=== PATIENT | male | born 1960 | race Caucasian/White ===

== ENCOUNTER → 2023-03-03 | Outpatient (CLI) | payer OTHER, SELFPAY ==
--- NOTE | 2023-03-03 10:02 | NM_ITS ---
CLINICAL: 63-year-old male with history of clinical gastroparesis. SEMI-SOLID PHASE 99m Tc SULFUR COLLOID GASTRIC EMPTYING STUDY COMPARISON: None available FINDINGS: The patient was administered 1.0 mCi of 99m Tc sulfur colloid mixed with oatmeal and consumed per os. Image acquisitions in the anterior-posterior projections were obtained for 60 minutes. There is prompt visualization of the stomach. There is no gastroesophageal reflux identified. The T ? raw data emptying was calculated to be 2.38 minutes, (Normal: 12-56 minutes). NM/Gastric Emptying Study IMPRESSION: 1. NORMAL 99m Tc sulfur colloid semi-solid phase (oatmeal) gastric emptying imaging examination. A. There is upper limits of normal and preserved semi-solid phase gastric emptying compared to normal controls. (Bharath et al, J Nucl Med Tech 38: 186, 2010). Electronically Signed: Shahid Pan, at 23:32 EDT ,
== END | disposition home or self-care (01) ==
LOC: NM 10:00
PROVIDERS: Referring Provider Internal Medicine Gastroenterology; Visit Provider Internal Medicine Gastroenterology
DX: K59.00 Constipation, unspecified (principal); R10.9 Unspecified abdominal pain
CPT/HCPCS: 78264; A9541

== ENCOUNTER → 2023-03-31 | Outpatient (CLI) | payer OTHER, SELFPAY ==
--- NOTE | 2023-03-31 17:34 | CT_ITS ---
EXAM: CT ANGIOGRAPHY ABDOMEN AND PELVIS WITHOUT AND WITH INTRAVENOUS CONTRAST CLINICAL INDICATION: LOOKING FOR ISCHEMIC BOWEL TECHNIQUE: Helically acquired angiography images were obtained of the abdomen and pelvis without and with intravenous contrast. This CT exam was performed using one or more of the following dose reduction techniques: automated exposure control, adjustment of the mA and/or kV according to patient size, and/or use of iterative reconstruction technique. MIP reconstructed images were created and reviewed. CONTRAST: IV 100mL Isovue-370 RADIATION DOSE: Total DLP: 1198.66 mGy-cm. COMPARISON: None. FINDINGS: VASCULATURE: AORTA: The abdominal aorta is minimally calcific and is normal in caliber. No aneurysm or intimal flap. CELIAC TRUNK AND MESENTERIC ARTERIES: The ANU enhances normally. Celiac axis and SMA are widely patent. No occlusion or significant stenosis. RENAL ARTERIES: There are 2 right renal arteries and a single left renal artery. No renal artery stenosis is visualized. ILIAC ARTERIES: Minimal nonstenotic calcified plaque noted within the distal right common iliac artery. The common iliac, external iliac, common femoral and visualized superficial femoral arteries show no hemodynamically significant stenosis. LOWER THORAX: Visualized lung bases are clear except for incidental dependent atelectasis. No pleural effusion. No coronary artery calcification is visualized. No significant pericardial effusion. ABDOMEN: LIVER: Unremarkable. Homogeneous. No focal mass. GALLBLADDER AND BILE DUCTS: Unremarkable. No calcified gallstones. No gallbladder distention or wall edema. No intra- or extrahepatic biliary ductal dilation. PANCREAS: Unremarkable. No focal cystic or solid mass. SPLEEN: Unremarkable. Normal size without focal cystic or solid mass. ADRENALS: Unremarkable. No nodules. KIDNEYS AND URETERS: Normal size kidneys with symmetric nephrograms. Minimal nonspecific perirenal stranding. Small simple right renal cysts which require no follow-up. No hydronephrosis or obstructing ureteral stone. STOMACH AND BOWEL: No gastric mural thickening, periduodenal inflammatory changes or distended small bowel loops. No bowel wall thickening, pneumatosis or mesenteric venous gas. No nonenhancing bowel wall is seen. The ascending colon is decompressed, causing artifactual mural thickening. PELVIS: APPENDIX: Normal. No evidence of acute appendicitis. BLADDER: Unremarkable. REPRODUCTIVE: Unremarkable as visualized. No mass. ABDOMEN and PELVIS: INTRAPERITONEAL SPACE: Unremarkable. No ascites or other fluid collection. No free air. BONES/JOINTS: Flowing osteophytes about the lower thoracic disc spaces. Degenerative spurring about the L2/3 disc space. No acute osseous abnormality. SOFT TISSUES: Small fat-filled bilateral inguinal hernias, larger on the left. LYMPH NODES: Small nonspecific lymph nodes with surrounding haziness noted within the small bowel mesentery, nonspecific. CT/CTA Abd/Pelvis W/WO Contrast IMPRESSION: 1. The major intra-abdominal vessels show no hemodynamically significant stenosis or occlusion. 2. No findings of ischemic bowel identified. 3. Normal appendix. 4. Small nonspecific mesenteric lymph nodes with surrounding otoniel mesentery, which can be due to a variety of etiologies including an adenitis or mesenteric panniculitis, which can be associated chronic abdominal pain. Electronically Signed: Heladio Manzano MD at 5:13 EDT ,
[2023-03-31 18:03] LABS: EGFR FINGERSTICK > 60.0000 mL/min (>60)
== END | disposition home or self-care (01) ==
PROVIDERS: Referring Provider Internal Medicine Gastroenterology; Visit Provider Internal Medicine Gastroenterology
DX: K59.00 Constipation, unspecified (principal); R10.9 Unspecified abdominal pain
CPT/HCPCS: 74174; Q9967

== ENCOUNTER 2023-04-12 15:49 | Outpatient (CLI) | payer OTHER, SELFPAY ==
[2023-04-12] VITALS (8 sets, daily range): BP systolic 106–138; BP diastolic 68–82; PULSE 62–80; RESP 16–20; TEMP 36.1–36.7; O2SAT 92–98; BMI 33.5
--- NOTE | 2023-04-12 13:22 | PCM.HP.BLA ---
History and Physical Date of Admission: 04/12/23 YODIT JACKMAN, is a 62 M who presents to the office today for [facility] 11.13.22 with abdominal distention, N/V. Workup noted dehydration without acute/chronic findings. Improved with Zofran; hold Trulicity. Discharged home. ? CT abd/pel dilated stomach with fluid, air, debris with focal thickening of antrum likely r/t peristalsis; fluid in colon. Endocrinology [facility] established 2017 for DMII, Hashimotos thyroidistis and hypogonadism. Continue metformin, Jardiance and Trulicity; continue androgel. *[facility] established 5.10.23 with several days of softer stools with difficulty initiating and straining followed by several days of loose stools 3-5/day with increased flatulence. Symptoms have been a lifelong issue that the constipation aspect is getting worse. N/V has resolved since [facility] visit. He is not currently taking regular bowel medications; laxative is used PRN 1-2 times a week. Reports colonoscopy many years prior with polypectomy and recalls [place] reports. ROS Const Constitutional: No anorexia, fatigue, fever(s), weight change or sleep problems Eyes Eyes: No change in vision ENT ENT: No abnormal hearing, difficulty swallowing, mouth lesions, tongue swelling or throat swelling Resp Respiratory: No cough or shortness of breath Cardio Cardiology: No chest pain at rest, chest pain with exertion, shortness of breath or dyspnea on exertion Gastro GI: No difficulty swallowing Genitourinary Male: No difficulty urinating or burning urination Musc Musculoskeletal: No joint pain, joint swelling, muscle weakness or decreased muscle mass Skin Skin: No hair loss in leg, yellowing of the eye, itchy eyes, rash, skin ulcer or skin swelling Neuro Neurology: No abnormal hearing, abnormal movements, confusion, unsteady gait/balance or memory loss Psych Psychiatric: No anxiety, No confusion and No memory loss Endo Endocrine: No fatigue or weight change Aller/Imm Allergy/Immunologic: No itchy eyes, throat swelling or tongue swelling Chad/Lymp Hematologic/Lymphatic: No easy bleeding, easy bruising or enlarged lymph nodes Assessment and Plan Assessment and Plan (1) Constipation: Status: Chronic Plan: It seems like he does have chronic idiopathic constipation or slow transit constipation which can be a result of the type 2 diabetes. He has a history of diverticular disease. We will perform colonoscopy in order to evaluate his lower GI tract. He also may need evaluation of his pelvic floor in the setting of chronic diabetes to make sure that he does not have any signs of outlet neuropathy secondary to diabetes that is causing obstipation like symptoms. We will also evaluate him for sigmoid colitis associated with diverticulosis due to his abdominal pain caused him to go to the hospital for evaluation. (2) Abdominal pain: Status: Acute Plan: He is also at risk for gastroparesis due to longstanding history of diabetes. He suffers from Raynaud's phenomenon and also neuropathy associated with diabetes. He does not have any history of protein in his urine or any diabetic retinopathy as per the patient and his . We will perform a gastric emptying study to see if he has any signs of delayed gastric emptying secondary to diabetes mellitus. We will also get a CT angiography due to his history of ischemic stroke and intermittent abdominal pain. When he undergoes a colonoscopy he will also undergo an upper endoscopy to look for any signs of peptic ulcer disease, H. pylori associated gastritis, hiatal hernia or any other dyspeptic findings in his upper GI tract. Orders: Orders Comprehensive Metabolic Profil Today K59.00 - Constipation, unspecified, R10.9 - Unspecified abdominal pain CRP Today K59.00 - Constipation, unspecified, R10.9 - Unspecified abdominal pain LDH Today K59.00 - Constipation, unspecified, R10.9 - Unspecified abdominal pain Erythrocyte Sed Rate Today K59.00 - Constipation, unspecified, R10.9 - Unspecified abdominal pain Gastric Emptying Study Today K59.00 - Constipation, unspecified, R10.9 - Unspecified abdominal pain ANCA Today K59.00 - Constipation, unspecified, R10.9 - Unspecified abdominal pain Celiac Disease Profile Today K59.00 - Constipation, unspecified, R10.9 - Unspecified abdominal pain Immunoglobulin A Today K59.00 - Constipation, unspecified, R10.9 - Unspecified abdominal pain Immunoglobulin E Today K59.00 - Constipation, unspecified, R10.9 - Unspecified abdominal pain Immunoglobulin G Today K59.00 - Constipation, unspecified, R10.9 - Unspecified abdominal pain Immunoglobulin M Today K59.00 - Constipation, unspecified, R10.9 - Unspecified abdominal pain CTA Abd/Pelvis W/WO Contrast Today K59.00 - Constipation, unspecified, R10.9 - Unspecified abdominal pain Allergen, Rast Food Profile Today K59.00 - Constipation, unspecified, R10.9 - Unspecified abdominal pain Allergen, Food Profile Today K59.00 - Constipation, unspecified, R10.9 - Unspecified abdominal pain BARRIE Comprehensive Panel Today K59.00 - Constipation, unspecified, R10.9 - Unspecified abdominal pain I have examined the patient and the H&P has been reviewed. There are no clinical changes since date of exam.
[2023-04-12] MEDS: Lactated Ringers 1,000 ML 15 ML IV (13:24)
--- NOTE | 2023-04-12 13:45 | IMM_PTH ---
PATIENT: YODIT JACKMAN LOC: EN U#:[id number] AGE/SX: 63/M ROOM: RE04/12/[address]: Dr. Ramiro Palomino DO : 1960 BED: DIS: 04/12/2023 SPEC #: [id number] RECD: 04/13/23 12:49 STATUS: SD JAZMINE #: [id number] GARCIA: 04/12/23 13:[address]: Ramiro Palomino DEPT: IMMUNOHISTOCHEMISTRY RECD BY: Carmencita Woo Tissues: B - Stomach, NOS Procedures: H Pylori (initial) PHYSICIAN & INSTITUTION [place] [id number] SPECIMEN INFORMATION: Tissue Source: B - Gastric ulcer Clinical Info: Constipation, abdominal pain Specimen Number: [id number] CPT code: 39060 METHODOLOGY: Deparaffinized sections of prefer/formalin-fixed tissue or PAP/DQ stained slides are incubated with monoclonal/polyclonal antibodies/oligonucleotide probes. Localization is made via biotin free immunoperoxidase method. Appropriate controls are performed and reacted as expected. Results on target cell population are indicated in the following table: RESULTS: ANTIBODY / CLONE RESULT Block B H Pylori (polyclonal) negative These tests were developed and their performance characteristics determined by [facility]. They may not have been cleared or approved by the U.S. Food and Drug Administration. The FDA has determined that such clearance or approval is not necessary. The above immunohistochemical/dualISH markers are ordered and reviewed by the Pathologist. INTERPRETATION: B. Gastric ulcer, biopsy: Negative for Helicobacter pylori organisms. AM:essie 04/14/2023
--- NOTE | 2023-04-12 13:45 | EGD_PTH ---
PATIENT: YODIT JACKMAN LOC: EN U#:[id number] AGE/SX: 63/M ROOM: RE04/12/[address]: Dr. Ramiro Palomino DO : 1960 BED: DIS: 04/12/2023 SPEC #: [id number] RECD: 04/13/23 08:41 STATUS: SD JAZMINE #: [id number] GARCIA: 04/12/23 13:[address]: Ramiro Palomino DEPT: SURGICAL PATHOLOGY RECD BY: Rosi Germain Tissues: A - Duodenum, NOS B - Gastric mucous membrane C - Ascending colon D - Cecum, NOS E - Cecum, NOS F - COLON BIOPSY Procedures: Surgery Specimen Level IV HEADER OPERATION: Colonoscopy with biopsies, EGD ([facility] [place]) with biopsies PRE-OP DIAGNOSIS: Constipation, abdominal pain TISSUE SUBMITTED: A - Duodenum biopsy, B - Gastric ulcer biopsy, C - Ascending colon polyp biopsy, D - Cecum polyp biopsy, E - Cecum biopsy, F - Random colon biopsy MICROSCOPIC DIAGNOSIS A. Duodenum, biopsy: Mild mucosal congestion. B. Gastric ulcer, biopsy: Ulceration with associated acute and chronic inflammation and granulation. See comment. C. Ascending colon polyp, biopsy: Tubular adenoma. D. Cecal polyp, biopsy: Fragments of tubular adenoma. E. Cecal polyp, biopsy: Polypoid fragments of benign colonic mucosa. See comment. F. Colon, random biopsy: No pathologic change. AM:essie 04/14/2023 COMMENT B. The results of immunohistochemistry for Helicobacter pylori will be reported separately ([id number]). E. Neither hyperplastic nor adenomatous change is seen. Clinical correlation is suggested. MICROSCOPIC DESCRIPTION Slides are reviewed. GROSS DESCRIPTION A - Received in fixative is one container labeled with the patient's name and designated duodenum biopsy. The specimen consists of multiple irregular fragments of light stewart soft tissue that in aggregate measure 0.8 x 0.3 x 0.1 cm. The specimen is totally submitted in one cassette. B - Received in fixative is one container labeled with the patient's name and designated gastric ulcer biopsy. The specimen consists of multiple irregular fragments of light stewart soft tissue that in aggregate measure 0.8 x 0.2 x 0.1 cm. The specimen is totally submitted in one cassette. C - Received in fixative is one container labeled with the patient's name and designated ascending colon polyp biopsy. The specimen consists of one irregular fragment of light stewart soft tissue that measures 0.3 x 0.3 x 0.1 cm. The specimen is totally submitted in one cassette. D - Received in fixative is one container labeled with the patient's name and designated cecum polyp biopsy. The specimen consists of two irregular fragments of light stewart soft tissue that in aggregate measure 0.8 x 0.4 x 0.1 cm. The specimen is totally submitted in one cassette. E - Received in fixative is one container labeled with the patient's name and designated cecum biopsy. The specimen consists of multiple irregular fragments of light stewart soft tissue that in aggregate measure 1.0 x 0.5 x 0.1 cm. The specimen is totally submitted in one cassette. F - Received in fixative is one container labeled with the patient's name and designated random colon biopsy. The specimen consists of multiple irregular fragments of light stewart soft tissue that in aggregate measure 0.8 x 0.6 x 0.1 cm. The specimen is totally submitted in one cassette. / SJ:rg 04/13/2023 TC:2 CPT: 62230 x6
[2023-04-12 14:32] LABS: Bedside Glucose 108 mg/dL (74-106)
--- NOTE | 2023-04-12 14:48 | OP.COLON_ITS ---
Patient Name: Dallas Simon Procedure Date: 04/12/2023 2:25 PM Date of : 1960 Age: 63 Procedure: Colonoscopy Indications: Chronic diarrhea Providers: Ramiro Palomino DO Referring MD: Ramiro Palomino DO Medicines: Monitored Anesthesia Care Patient Profile: This is a 63 year old male. Refer to note in patient chart for documentation of history and physical. Last Colonoscopy: date unknown. Unable to locate last colonoscopy report. Complications: No immediate complications. Procedure: Pre-Anesthesia Assessment: - Prior to the procedure, a History and Physical was performed, and patient medications and allergies were reviewed. The patient is competent. The risks and benefits of the procedure and the sedation options and risks were discussed with the patient. All questions were answered and informed consent was obtained. Patient identification and proposed procedure were verified by the physician in the pre-procedure area. Mental Status Examination: alert and oriented. Airway Examination: normal oropharyngeal airway and neck mobility. Respiratory Examination: clear to auscultation. CV Examination: normal. Prophylactic Antibiotics: The patient does not require prophylactic antibiotics. Prior Anticoagulants: The patient has taken no previous anticoagulant or antiplatelet agents. After reviewing the risks and benefits, the patient was deemed in satisfactory condition to undergo the procedure. The anesthesia plan was to use monitored anesthesia care (MAC). Immediately prior to administration of medications, the patient was re-assessed for adequacy to receive sedatives. The heart rate, respiratory rate, oxygen saturations, blood pressure, adequacy of pulmonary ventilation, and response to care were monitored throughout the procedure. The physical status of the patient was re-assessed after the procedure. After I obtained informed consent, the scope was passed under direct vision. Throughout the procedure, the patient's blood pressure, pulse, and oxygen saturations were monitored continuously. The was introduced through the anus and advanced to the cecum, identified by appendiceal orifice and ileocecal valve. The colonoscopy was performed without difficulty. The patient tolerated the procedure well. The quality of the bowel preparation was good. Scope In: 2:26:57 PM Scope Withdrawal Time 0 hours 11 minutes 42 seconds Scope Out: 2:42:19 PM Total Procedure Duration Time 0 hours 15 minutes 22 seconds Findings: The perianal and digital rectal examinations were normal. Two sessile polyps were found in the ascending colon and cecum. The polyps were 1 to 2 mm in size. These polyps were removed with a cold snare. Resection and retrieval were complete. Verification of patient identification for the specimen was done. Estimated blood loss was minimal. An area of mildly congested mucosa was found in the rectum, in the recto-sigmoid colon, in the transverse colon, at the hepatic flexure and in the ascending colon. Biopsies were taken with a cold forceps for histology. Verification of patient identification for the specimen was done. Estimated blood loss was minimal. There was a large lipoma, at the hepatic flexure. Impression: - Two 1 to 2 mm polyps in the ascending colon and in the cecum, removed with a cold snare. Resected and retrieved. - Congested mucosa in the rectum, in the recto-sigmoid colon, in the transverse colon, at the hepatic flexure and in the ascending colon. Biopsied. - Large lipoma at the hepatic flexure. Recommendation: - Discharge patient to home. - Resume previous diet. - Continue present medications. - Await pathology results. - Repeat colonoscopy in 5 years for surveillance. Procedure Code(s): --- Professional --- 37372, Colonoscopy, flexible; with removal of tumor(s), polyp(s), or other lesion(s) by snare technique 20373, 59, Colonoscopy, flexible; with biopsy, single or multiple CPT copyright 2017 [employer]. All rights reserved. The codes documented in this report are preliminary and upon headliner installer review may be revised to meet current compliance requirements. Ramiro Palomino DO 04/12/2023 2:47:30 PM This report has been signed electronically. Number of Addenda: 0 Note Initiated On: 04/12/2023 2:25 PM
--- NOTE | 2023-04-12 14:48 | OP.CCLET_ITS ---
04/12/2023 Linus Re : Colonoscopy procedure for Dallas Simon Dear Linus This procedure was performed on Wednesday, April 12, 2023. My impressions and recommendations are as follows: Impressions : - Two 1 to 2 mm polyps in the ascending colon and in the cecum, removed with a cold snare. Resected and retrieved. - Congested mucosa in the rectum, in the recto-sigmoid colon, in the transverse colon, at the hepatic flexure and in the ascending colon. Biopsied. - Large lipoma at the hepatic flexure. Recommendations : - Discharge patient to home. - Resume previous diet. - Continue present medications. - Await pathology results. - Repeat colonoscopy in 5 years for surveillance. My findings are described in the full procedure note, which is enclosed. If I can be of further assistance, please feel free to contact me at . Sincerely, Ramiro Palomino, 04/12/2023 2:47:30 PM This report has been signed electronically.
--- NOTE | 2023-04-12 14:51 | OP.EGD_ITS ---
Patient Name: Dallas Simon Procedure Date: 04/12/2023 2:06 PM Date of : 1960 Age: 63 Procedure: Upper GI endoscopy Indications: Epigastric abdominal pain Providers: Ramiro Palomino DO Referring MD: Ramiro Palomino DO Medicines: Monitored Anesthesia Care Patient Profile: This is a 63 year old male. Refer to note in patient chart for documentation of history and physical. Patient has symptoms. Complications: No immediate complications. Procedure: Pre-Anesthesia Assessment: - Prior to the procedure, a History and Physical was performed, and patient medications and allergies were reviewed. The patient is competent. The risks and benefits of the procedure and the sedation options and risks were discussed with the patient. All questions were answered and informed consent was obtained. Patient identification and proposed procedure were verified by the physician in the pre-procedure area. Mental Status Examination: alert and oriented. Airway Examination: normal oropharyngeal airway and neck mobility. CV Examination: normal. Prophylactic Antibiotics: The patient does not require prophylactic antibiotics. Prior Anticoagulants: The patient has taken no previous anticoagulant or antiplatelet agents. After reviewing the risks and benefits, the patient was deemed in satisfactory condition to undergo the procedure. The anesthesia plan was to use minimal sedation / analgesia (anxiolysis). Immediately prior to administration of medications, the patient was re-assessed for adequacy to receive sedatives. The heart rate, respiratory rate, oxygen saturations, blood pressure, adequacy of pulmonary ventilation, and response to care were monitored throughout the procedure. The physical status of the patient was re-assessed after the procedure. After obtaining informed consent, the endoscope was passed under direct vision. Throughout the procedure, the patient's blood pressure, pulse, and oxygen saturations were monitored continuously. The was introduced through the mouth, and advanced to the second part of duodenum. The upper GI endoscopy was accomplished without difficulty. The patient tolerated the procedure well. Scope In: 2:19:59 PM Scope Out: 2:24:40 PM Total Procedure Duration Time 0 hours 4 minutes 41 seconds Findings: LA Grade A (one or more mucosal breaks less than 5 mm, not extending between tops of 2 mucosal folds) esophagitis with no bleeding was found 36 to 38 cm from the incisors. Many oozing cratered gastric ulcers with pigmented material were found in the stomach. The largest lesion was 5 mm in largest dimension. Area was successfully injected with 5 mL of a 1:10,000 solution of epinephrine for hemostasis. Estimated blood loss was minimal. Three non-bleeding cratered gastric ulcers with no stigmata of bleeding were found in the gastric body. The largest lesion was 6 mm in largest dimension. Biopsies were taken with a cold forceps for histology. Verification of patient identification for the specimen was done. Estimated blood loss was minimal. Many non-bleeding linear duodenal ulcers with no stigmata of bleeding were found in the duodenal bulb. The largest lesion was 6 mm in largest dimension. Biopsies were taken with a cold forceps for histology. Verification of patient identification for the specimen was done. Estimated blood loss was minimal. Impression: - LA Grade A esophagitis. - Oozing gastric ulcers with pigmented material. Injected. - Non-bleeding gastric ulcers with no stigmata of bleeding. Biopsied. - Multiple non-bleeding duodenal ulcers with no stigmata of bleeding. Biopsied. Recommendation: - Discharge patient to home. - Resume previous diet. - Continue present medications. - Await pathology results. - Use Protonix (pantoprazole) 40 mg PO BID. - Use sucralfate tablets 1 gram PO QID. Procedure Code(s): --- Professional --- 84506, 59, Esophagogastroduodenoscopy, flexible, transoral; with control of bleeding, any method 82069, Esophagogastroduodenoscopy, flexible, transoral; with biopsy, single or multiple CPT copyright 2017 [employer]. All rights reserved. The codes documented in this report are preliminary and upon industrial nurse review may be revised to meet current compliance requirements. Ramiro Palomino DO 04/12/2023 2:51:25 PM This report has been signed electronically. Number of Addenda: 0 Note Initiated On: 04/12/2023 2:06 PM
--- NOTE | 2023-04-12 14:51 | OP.CCLET_ITS ---
04/12/2023 Lady Barriga Re : Upper GI endoscopy procedure for [place] Bowerr Linus This procedure was performed on Wednesday, April 12, 2023. My impressions and recommendations are as follows: Impressions : - LA Grade A esophagitis. - Oozing gastric ulcers with pigmented material. Injected. - Non-bleeding gastric ulcers with no stigmata of bleeding. Biopsied. - Multiple non-bleeding duodenal ulcers with no stigmata of bleeding. Biopsied. Recommendations : - Discharge patient to home. - Resume previous diet. - Continue present medications. - Await pathology results. - Use Protonix (pantoprazole) 40 mg PO BID. - Use sucralfate tablets 1 gram PO QID. My findings are described in the full procedure note, which is enclosed. If I can be of further assistance, please feel free to contact me at . Sincerely, Ramiro Palomino, 04/12/2023 2:51:25 PM This report has been signed electronically.
--- NOTE | 2023-04-12 15:08 | SUR.PHASEI ---
ANESTHESIA NOTIFIED PT [id number] PERCENT ON ROOM AIR. PT DENIES SHORTNESS OF BREATH. PT ALERT. LUNGS CLEAR. PT DRINKING COFFEE. OK TO TRANSFER PT TO STAGE 2
[2023-04-12 16:30] LABS: Erythrocyte Sedimentation Rate 2 mm/hr (0-20)
[2023-04-12 16:45] LABS: ALB/GLOB Ratio 1.3 RATIO (0.9-2.4); AST(SGOT) 32 U/L (15-37); Alanine Aminotransfer ALT/SGPT 51 U/L (16-61); Albumin, Serum 3.8 g/dL (3.2-5.0); Alkaline Phosphatase 95 U/L (45-117); Anion Gap 3 (5-15); BUN 10 mg/dL (7-18); BUN/Creat Ratio 9.9 RATIO (10-20); CRP < 2.90 mg/L (0.0-3.0); Calcium,Total 8.8 mg/dL (8.5-10.1); Chloride 103 mmol/L (98-107); Creatinine, Serum 1.01 mg/dL (0.70-1.30); EST Glomerular Filtration Rate 79 mL/min (>60); Est Glom Filt Rate - Afr Amer 96 mL/min (>60); Estimated Creatinine Clearance 72.43 ml/min; Glucose 164 mg/dL (74-106); LDH 105 U/L (87-241); Potassium 3.9 mmol/L (3.5-5.1); Protein, Total 6.8 g/dL (6.4-8.2); Sodium Level 136 mmol/L (136-145)
[2023-04-16 00:06] LABS: Anti-Centromere B Ab <0.2 AI (0.0-0.9); Anti-Chromatin <0.2 AI (0.0-0.9); Anti-Jo <0.2 AI (0.0-0.9); Anti-Scleroderma-70 AB <0.2 AI (0.0-0.9); Anti-dsDNA Ab <1 IU/mL (0-9); Beef <0.10 kU/L (Class 0); Chocolate <0.10 kU/L (Class 0); Clam <0.10 kU/L (Class 0); Codfish <0.10 kU/L (Class 0); Corn <0.10 kU/L (Class 0); Egg, White <0.10 kU/L (Class 0); Egg, Whole <0.10 kU/L (Class 0); Milk (Cow) <0.10 kU/L (Class 0); Peanut <0.10 kU/L (Class 0); Pork <0.10 kU/L (Class 0); RNP Ab <0.2 AI (0.0-0.9); SCALLOP <0.10 kU/L (Class 0); SESAME SEED <0.10 kU/L (Class 0); SJOGREN'S Anti-SS-A test < 0.2 AI (0.0-0.9); SJOGREN'S Anti-SS-B test < 0.2 AI (0.0-0.9); Shrimp <0.10 kU/L (Class 0); Smith Ab <0.2 AI (0.0-0.9); Soybean <0.10 kU/L (Class 0); Walnut, (Food) <0.10 kU/L (Class 0); Wheat <0.10 kU/L (Class 0)
[2023-04-16 07:08] LABS: Cytoplasmic Ab (C-ANCA) <1:20 titer (Neg:<1:20); Endomysial Antibody IgA Negative (Negative); Immunoglobulin A 125 mg/dL (61-437); Immunoglobulin E 141 IU/mL (6-495); Immunoglobulin G 831 mg/dL (603-1613); Immunoglobulin M 40 mg/dL (20-172); Perinuclear Ab (P-ANCA) <1:20 titer (Neg:<1:20); t-Transglutaminase IgA <2 U/mL (0-3)
== END 2023-04-12 15:55 | disposition home or self-care (01) ==
LOC: EN 15:51
PROVIDERS: Referring Provider Internal Medicine Gastroenterology; Visit Provider Internal Medicine Gastroenterology
PROC: 0DJD8ZZ Inspection of Lower Intestinal Tract, Via Natural or Artificial Opening Endoscopic (ICD-10-PCS; CPT 45378; principal; 2023-04-12 13:40)
DX: K59.00 Constipation, unspecified (principal); E11.9 Type 2 diabetes mellitus without complications; R10.9 Unspecified abdominal pain; K25.9 Gastric ulcer, unspecified as acute or chronic, without hemorrhage or perforation; K20.90 Esophagitis, unspecified without bleeding; Z86.73 Personal history of transient ischemic attack (TIA), and cerebral infarction without residual deficits; Z99.89 Dependence on other enabling machines and devices; G25.81 Restless legs syndrome; E07.9 Disorder of thyroid, unspecified; Z79.899 Other long term (current) drug therapy
CPT/HCPCS: 43239; 45385; 45380; 43255; 36415; 80053; 82784; 82785; 82962; 83516; 83615; 85652; 86003; 86005; 86140; 86225; 86235; 86255; 86256; 88305; 88342; J7120; J2405

== ENCOUNTER → 2024-11-30 | Outpatient (CLI) | payer OTHER, SELFPAY ==
[2024-11-30 10:58] LABS: Hematocrit 50.6 % (40-54); Mean Corp Hgb Conc 33.6 g/dL (32-36); Mean Corpuscular Volume 89.2 fL (80-94); Mean Platelet Vol. 12.8 fl (6.2-12.0); POSITIVE COUNT YES; POSITIVE MORPHOLOGY YES; Platelet Count 176 K/mm3 (150-450); RBC Distribution Width CV 13.8 % (11.6-14.6); RBC Distribution Width SD 44.9 fl (35.1-43.9); Red Blood Count 5.67 M/mm3 (4.6-6.2); White Blood Count 14.4 K/mm3 (4.4-11.0)
[2024-11-30 11:24] LABS: Differential Indicated MANUAL DIFF
[2024-11-30 11:44] LABS: Basophil 1 % (0-1); Eosinophil 5 % (0-5); Lymphocyte 34 % (19-41); Metamyelocyte 1 % (0-1); Monocyte 5 % (0-10); Neutrophil-Band 3 % (0-5); Neutrophil-Segmented 51 % (47-70); Total Cells Counted 100 (MANUAL DIFF)
[2024-11-30 11:45] LABS: Platelet Estimate ADEQUATE (ADEQ); Red Cell Morphology N CHROM NORMAL (NORM C&C)
[2024-11-30 11:46] LABS: Absolute Lymphocyte Count 4.89 X10^3/uL (0.83-4.51); Absolute Neutrophil Count 7.8 X10^3/uL (2.0-7.7); Pathologist Review May foll
[2024-11-30 11:57] LABS: ALB/GLOB Ratio 1.6 RATIO (0.9-2.4); AST(SGOT) 17 U/L (<=37); Alanine Aminotransfer ALT/SGPT 19 U/L (<=46); Albumin, Serum 4.2 g/dL (3.4-4.8); Alkaline Phosphatase 128 U/L (40-129); Anion Gap 15 (5-15); BUN 10 mg/dL (4-19); BUN/Creat Ratio 8.7 RATIO (10-20); CRP 6.92 mg/L (0.0-3.0); Calcium,Total 9.5 mg/dL (7.6-11.0); Carbon Dioxide 22.7 mmol/L (21.0-32.0); Chloride 104 mmol/L (98-108); Creatinine, Serum 1.15 mg/dL (0.70-1.20); EST Glomerular Filtration Rate 71 (>60); Globulin 2.7 g/dL (2.2-4.2); Glucose 109 mg/dL (70-99); Potassium 3.3 mmol/L (3.3-5.1); Protein, Total 6.9 g/dL (5.9-8.4); Sodium Level 141 mmol/L (133-145); Total Bilirubin 0.28 mg/dL (0.00-1.30)
[2024-12-04 13:08] LABS: Calprotectin, Stool 73 ug/g (0-120)
[2024-12-05 01:06] LABS: Pancreatic Elastase, Fecal 357 (>200)
== END | disposition home or self-care (01) ==
PROVIDERS: PCP Family Medicine
DX: K58.9 Irritable bowel syndrome, unspecified (principal); A09 Infectious gastroenteritis and colitis, unspecified
CPT/HCPCS: 36415; 80053; 82274; 82653; 83993; 84443; 85025; 86140; 87177; 87209; 87329; 87493; 87506